=== PATIENT | female | born 2000 | race American Indian/Alaskan Native ===

== ENCOUNTER 2019-07-15 00:21 | Emergency (ER) | payer BC ==
[2019-07-15 00:40] VITALS: BP 120/69
[2019-07-15 01:21] LABS: Basophils % (Auto) 0.4 % (0.0-1.8); Eosinophils % (Auto) 0.7 % (0.0-4.3); Hematocrit 34.3 % (30.3-42.9); Hemoglobin 11.6 gm/dl (10.1-14.3); Lymphocytes % (Auto) 17.5 % (13.4-35.0); Mean Corpuscular HGB Conc 34 % (30-34); Mean Corpuscular Volume 92 fl (79-97); Monocytes # (Auto) 0.4 K/mm3 (0.0-0.8); Platelet Count 209 K/mm3 (140-440); Red Blood Count 3.74 M/mm3 (3.65-5.03); Red Cell Distribution Width 13.1 % (13.2-15.2)
[2019-07-15 01:34] LABS: Alanine Aminotransferase 18 units/L (7-56); Albumin 4.3 g/dL (3.9-5); BUN/Creatinine Ratio 14; Blood Urea Nitrogen 10 mg/dL (7-17); Hemolysis Index 3
--- NOTE | 2019-07-15 02:01 | Emergency Department Report ---
ED Dysuria HPI - HPI Chief Complaint: Abdominal Pain Stated Complaint: VOMITING,ABD PAIN, FEVER Time Seen by Provider: 07/15/19 02:00 Other History: 19 YO WITH 3 DAY HX OF NAUSEA AND VOMITING. LMP 8-12. STATES "I HOPE THIS IS JUST A VIRUS." ED Review of Systems ROS: Stated complaint: VOMITING,ABD PAIN, FEVER Other details as noted in HPI Comment: All other systems reviewed and negative ED Past Medical Hx - Past Medical History Previous Medical History?: Yes Hx Asthma: Yes - Surgical History Past Surgical History?: No - Social History Smoking Status: Never Smoker Substance Use Type: None - Medications Home Medications: Home Medications Medication Instructions Recorded Confirmed Last Taken Type Ondansetron [Zofran Odt] 4 mg PO Q8HR PRN #10 tab.rapdis 07/15/19 Unknown Rx Dysuria Exam - Exam General: Vital signs noted. No distress. Alert and acting appropriately. Exam: Yes Moist Mucous Membranes, No CVA Tenderness, No Abdominal Tenderness, No Rigidity or Guarding Labs: Lab Results 07/15/19 07/15/19 07/15/19 Range/Units 00:44 00:44 00:44 WBC 5.6 (4.5-11.0) K/mm3 RBC 3.74 (3.65-5.03) M/mm3 Hgb 11.6 (10.1-14.3) gm/dl Hct 34.3 (30.3-42.9) % MCV 92 (79-97) fl MCH 31 (28-32) pg MCHC 34 (30-34) % RDW 13.1 L (13.2-15.2) % Plt Count 209 (140-440) K/mm3 Lymph % (Auto) 17.5 (13.4-35.0) % [place] % (Auto) 8.0 H (0.0-7.3) % Eos % (Auto) 0.7 (0.0-4.3) % Baso % (Auto) 0.4 (0.0-1.8) % Lymph # 1.0 L (1.2-5.4) K/mm3 [place] # 0.4 (0.0-0.8) K/mm3 Eos # 0.0 (0.0-0.4) K/mm3 Baso # 0.0 (0.0-0.1) K/mm3 Seg Neutrophils % 73.4 H (40.0-70.0) % Seg Neutrophils # 4.1 (1.8-7.7) K/mm3 Sodium 135 L (137-145) mmol/L Potassium 3.5 L (3.6-5.0) mmol/L Chloride 97.1 L (98-107) mmol/L Carbon Dioxide 24 (22-30) mmol/L Anion Gap 17 mmol/L BUN 10 (7-17) mg/dL Creatinine 0.7 (0.7-1.2) mg/dL Estimated GFR > 60 ml/min BUN/Creatinine Ratio 14 % Glucose 101 H (65-100) mg/dL Calcium 9.0 (8.4-10.2) mg/dL Total Bilirubin 0.50 (0.1-1.2) mg/dL AST 30 (5-40) units/L ALT 18 (7-56) units/L Alkaline Phosphatase 51 (35-129) units/L Total Protein 7.7 (6.3-8.2) g/dL Albumin 4.3 (3.9-5) g/dL Albumin/Globulin Ratio 1.3 % Lipase 14 (13-60) units/L HCG, Qual Positive (Negative) ED Course Vital Signs 07/15/19 07/15/19 00:34 00:37 Temperature 98.7 F 98.2 F Pulse Rate 74 Respiratory 16 16 Rate Blood Pressure 120/69 120/69 O2 Sat by Pulse 99 Oximetry ED Medical Decision Making - Lab Data Result diagrams: 07/15/19 00:44 07/15/19 00:44 - Medical Decision Making Labs 07/15/19 07/15/19 07/15/19 00:44 00:44 00:44 WBC 5.6 RBC 3.74 Hgb 11.6 Hct 34.3 MCV 92 MCH 31 MCHC 34 RDW 13.1 L Plt Count 209 Lymph % (Auto) 17.5 [place] % (Auto) 8.0 H Eos % (Auto) 0.7 Baso % (Auto) 0.4 Lymph # 1.0 L [place] # 0.4 Eos # 0.0 Baso # 0.0 Seg Neutrophils % 73.4 H Seg Neutrophils # 4.1 Sodium 135 L Potassium 3.5 L Chloride 97.1 L Carbon Dioxide 24 Anion Gap 17 BUN 10 Creatinine 0.7 Estimated GFR > 60 BUN/Creatinine Ratio 14 Glucose 101 H Calcium 9.0 Total Bilirubin 0.50 AST 30 ALT 18 Alkaline Phosphatase 51 Total Protein 7.7 Albumin 4.3 Albumin/Globulin Ratio 1.3 Lipase 14 HCG, Qual Positive Urine Bilirubin Urine RBC (Auto) U Epithel Cells (Auto) 07/15/19 01:26 WBC RBC Hgb Hct MCV MCH MCHC RDW Plt Count Lymph % (Auto) [place] % (Auto) Eos % (Auto) Baso % (Auto) Lymph # [place] # Eos # Baso # Seg Neutrophils % Seg Neutrophils # Sodium Potassium Chloride Carbon Dioxide Anion Gap BUN Creatinine Estimated GFR BUN/Creatinine Ratio Glucose Calcium Total Bilirubin AST ALT Alkaline Phosphatase Total Protein Albumin Albumin/Globulin Ratio Lipase HCG, Qual Urine Bilirubin Neg Urine RBC (Auto) 1.0 U Epithel Cells (Auto) 2.0 Vital Signs 07/15/19 07/15/19 00:34 00:37 Temperature 98.7 F 98.2 F Pulse Rate 74 Respiratory 16 16 Rate Blood Pressure 120/69 120/69 O2 Sat by Pulse 99 Oximetry PREG POS PT DID NOT KNOW LABS NOTED NO VAG BLEED OR DISCHARGE NO PAIN CO N/V FOR A FEW DAYS G1 LMP 8-12 MEDICATED IN ER WITH ZOFRAN AND KCL TAKING PO DC HOME WITH DC PLAN OF CARE FOR NEW Critical care attestation.: If time is entered above; I have spent that time in minutes in the direct care of this critically ill patient, excluding procedure time. ED Disposition Clinical Impression: , Nausea and vomiting in , Hypokalemia Disposition: DC-01 TO HOME OR SELFCARE Is pt being admited?: No Does the pt Need Aspirin: No Condition: Stable Instructions: (ED) Additional Instructions: NO DRUGS OR ALCOHOL EAT BALANCED DIET HYDRATE WELL WITH WATER OVER THE COUNTER VITAMIN DAILY ZOFRAN FOR NAUSEA TYLENOL MAY BE USED FOR PAIN OR DISCOMFORT Prescriptions: Ondansetron [Zofran Odt] 4 mg PO Q8HR PRN #10 tab.rapdis PRN Reason: Vomiting Referrals: TEA HALLMAN MD [Staff Physician] - 3-5 Days Time of Disposition: 02:26
[2019-07-15 02:23] LABS: Bacteria,Urine 1+ /HPF (Negative); Bilirubin,Urine NEG (Negative); Blood,Urine NEG (Negative); Color,Urine Yellow (Yellow); Mucus,Urine 3+ /HPF; Protein,Urine <15 mg/dL mg/dL (Negative); Urobilinogen,Urine < 2.0 mg/dL (<2.0)
[2019-07-15] MEDS ORDERED: ZOFRAN ODT PO ONE (02:28)
[2019-07-15] MEDS ORDERED: K-DUR PO ONE (02:28)
== END 2019-07-15 02:53 | disposition home or self-care (01) ==
LOC: ED 00:21
DX: O21.9 Vomiting of pregnancy, unspecified (principal); O99.281 Endocrine, nutritional and metabolic diseases complicating pregnancy, first trimester; E87.6 Hypokalemia; O99.511 Diseases of the respiratory system complicating pregnancy, first trimester; J45.909 Unspecified asthma, uncomplicated; Z79.899 Other long term (current) drug therapy; Z3A.01 Less than 8 weeks gestation of pregnancy
CPT/HCPCS: 36415; 80053; 81001; 83690; 84703; 85025; Q0162

== ENCOUNTER 2019-07-18 19:39 | Emergency (ER) | payer BC ==
--- NOTE | 2019-07-18 20:20 | Event Note ---
ED Screening Note Date of service: 07/18/19 Time: 20:17 ED Screening Note: This is a 19 y.o. F. that presents to the ER with N/V and abdominal pain for 4 days. Confirmed Friday. LMP 06/03/2019, Denies vaginal bleeding This initial assessment/diagnostic orders/clinical plan/treatment(s) is/are subject to change based on patients health status, clinical progression and re- assessment by fellow clinical providers in the ED. Further treatment and workup at subsequent clinical providers discretion. Patient/guardian urged not to elope from the ED as their condition may be serious if not clinically assessed and managed. Initial orders include: Labs and OB US
[2019-07-18 20:45] LABS: Hematocrit 36.8 % (30.3-42.9); Hemoglobin 12.2 gm/dl (10.1-14.3); Mean Corpuscular HGB Conc 33 % (30-34); Mean Corpuscular Volume 92 fl (79-97); Platelet Count 256 K/mm3 (140-440); Red Blood Count 4.02 M/mm3 (3.65-5.03); Red Cell Distribution Width 12.9 % (13.2-15.2)
[2019-07-18 20:50] LABS: Bacteria,Urine 2+ /HPF (Negative); Bilirubin,Urine NEG (Negative); Blood,Urine NEG (Negative); Color,Urine Yellow (Yellow); Mucus,Urine 3+ /HPF
[2019-07-18 21:06] LABS: Alanine Aminotransferase 13 units/L (7-56); Albumin 4.5 g/dL (3.9-5); BUN/Creatinine Ratio 14; Blood Urea Nitrogen 10 mg/dL (7-17); Calcium 9.1 mg/dL (8.4-10.2); Hemolysis Index 7
--- NOTE | 2019-07-18 21:24 | Ultrasound Report ---
ULTRASOUND OBSTETRIC Indication: abdominal pain 12 weeks preg Findings: There is a single, living intrauterine . [place]-rump length = 0.38 cm = 6 weeks, 5 day(s). heart rate is 119 beats per minute. There is a mildly complex 2.3 cm left ovarian cyst. Right ovary is not seen. There is trace fluid in the cul-de-sac. Impression: Single, living intrauterine with estimated sonographic age of 6 weeks, 5 day(s). Right ovar y not visualized. Trace free fluid in the cul-de-sac. Signer Name: Al Jung MD Signed: 07/18/2019 9:20 PM Workstation Name: [id number]
[2019-07-19] MEDS ORDERED: ZOFRAN ODT PO ONE (00:20)
--- NOTE | 2019-07-19 00:23 | Emergency Department Report ---
Vomiting/Diarrhea - HPI Chief Complaint: Abdominal Pain Stated Complaint: ABD PAIN/NAUSEA Time Seen by Provider: 07/18/19 20:16 Duration: 5 Days Severity: mild Nausea/Vomiting Severity: Mild Diarrhea Severity: None Pain Severity: Mild Symptoms: Yes Able to Tolerate Fluids, No Watery Diarrhea, No Bloody diarrhea, No Fever, No Recent Unusual Foods, No Recent Untreated Water, No Recent use of Antibiotics, No Family w/ Similar Symptoms, No Contacts w/ Similar Symptoms, No Rash, No Hematuria, No Recent URI Symptoms Other History: This is a 19-year-old female presents to ED complaining of nausea or vomiting for the past week. Patient was evaluated here couple of days ago and was sent home patient states some nausea and vomiting is worsening and she is evidently a bit of cramping. Fever/chills/abdominal pain or vaginal bleeding or leaking ED Review of Systems ROS: Stated complaint: ABD PAIN/NAUSEA Other details as noted in HPI Comment: All other systems reviewed and negative ED Past Medical Hx - Past Medical History Previous Medical History?: Yes Hx Asthma: Yes - Surgical History Past Surgical History?: No - Social History Smoking Status: Never Smoker - Medications Home Medications: Home Medications Medication Instructions Recorded Confirmed Last Taken Type Ondansetron [Zofran Odt] 4 mg PO Q8HR PRN #10 tab.rapdis 07/15/19 Unknown Rx Ondansetron [Zofran ODT TAB] 8 mg PO TID #30 tab.rapdis 07/19/19 Unknown Rx Ranitidine HCl [Zantac] 300 mg PO BID #30 tablet 07/19/19 Unknown Rx Vomiting Diarrhea Exam - Exam General: Vital signs noted. No distress. Alert and acting appropriately. HEENT: Yes Moist Mucous Membranes, No Pharyngeal Erythema, No Pharyngeal Exudates, No Rhinorrhea, No Conjuctival Injection, No Frontal Tenderness, No Maxillary Tenderness Neck: No Adenopathy, No Rigidity Lungs: Yes Clear Lung Sounds, Yes Good Air Exchange, No Wheezes, No Stridor, No Cough, No Nasal Flaring, No Retractions, No Use of Accessory Muscles Heart exam: Regular: Yes, Murmur: No, Tachycardia: No Abdomen: Tenderness: No, Peritoneal Signs: No, Distention: No, Hyperactive Bowel sounds: No Skin exam: Rash: No, Edema: No, Normal turgor: Yes Neurologic: Alert and oriented, no deficits. Musculoskeletal: Unremarkable. ED Course Vital Signs 07/18/19 20:03 Temperature 98.6 F Pulse Rate 79 Respiratory 16 Rate Blood Pressure 106/69 O2 Sat by Pulse 100 Oximetry ED Medical Decision Making - Lab Data Result diagrams: 07/18/19 20:35 07/18/19 20:35 - Radiology Data Radiology results: report reviewed, image reviewed Findings: There is a single, living intrauterine . [place]-rump length = 0.38 cm = 6 weeks, 5 day(s). heart rate is 119 beats per minute. There is a mildly complex 2.3 cm left ovarian cyst. Right ovary is not seen. There is trace fluid in the cul-de-sac. Impression: Single, living intrauterine with estimated sonographic age of 6 weeks, 5 day(s). Right ovary not visualized. Trace free fluid in the cul-de-sac. Signer Name: Al Jung MD Signed: 07/18/2019 9:20 PM Workstation Name: [id number] Transcribed By: NICKY Dictated By: Al Jung MD Electronically Authenticated By: Al Jung MD Signed Date/Time: 07/18/192119 - Medical Decision Making This 19-year-old female presents with nausea vomiting and . All labs within normal limits urinalysis positive for UTI Patient is currently taking Macrobid as prescribed to her by her primary care physician. Patient states chest appointment with [facility] tomorrow at 1:45 PM. Discussed patient to keep appointment and make sure she follows up. Patient also taking Protonix and was told to stop taking it for acid reflux. Ranitidine given at discharge along with Zofran for nausea or vomiting. Vital signs are normal patient is in no acute distress patient is sleeping and resting ED bed comfortably. Ultrasound shows at 6 weeks 5 days with the heartbeat of 119. Physical findings the patient patient understands instructions and she will follow up tomorrow with [facility]. Critical care attestation.: If time is entered above; I have spent that time in minutes in the direct care of this critically ill patient, excluding procedure time. ED Disposition Clinical Impression: Nausea and vomiting in , UTI (urinary tract infection) Disposition: - TO HOME OR SELFCARE Is pt being admited?: No Does the pt Need Aspirin: No Condition: Stable Instructions: Abdominal Pain (ED), Urinary Tract Infection in Women (ED), (ED), Morning Sickness (ED) Additional Instructions: Make sure to follow up with the primary care physician as discussed. Take all your medications as you've been prescribed. If you have any worsening symptoms or develop new symptoms please return to ED immediately. Prescriptions: Ranitidine HCl [Zantac] 300 mg PO BID #30 tablet Ondansetron [Zofran ODT TAB] 8 mg PO TID #30 tab.rapdis Referrals: PRIMARY CARE, [Primary Care Provider] - 3-5 Days [facility] [Provider Group] - 3-5 Days [facility] [Provider Group] - 3-5 Days Forms: Accompanied Note, Work/School Release Form(ED) Time of Disposition: 00:31
[2019-07-19 02:37] VITALS: BP 110/70
== END 2019-07-19 01:20 | disposition home or self-care (01) ==
LOC: ED 19:39
DX: O23.41 Unspecified infection of urinary tract in pregnancy, first trimester (principal); Z3A.01 Less than 8 weeks gestation of pregnancy; O99.511 Diseases of the respiratory system complicating pregnancy, first trimester; Z79.899 Other long term (current) drug therapy
CPT/HCPCS: 36415; 76801; 80053; 81001; 84702; 85027; 87086; Q0162